=== PATIENT | female | born 2000 | race Caucasian/White ===

== ENCOUNTER 2021-05-15 17:28 | Emergency (ER) | payer OTHER ==
[~2021-05-15] VITALS: Ht 162.6 cm; Wt 149.7 kg
[2021-05-15] MEDS ORDERED: VITAMIN D250 MCG PO (17:37)
[2021-05-15] MEDS ORDERED: CELEXA10 MG PO (17:37)
[2021-05-15] MEDS ORDERED: BUPROPION HCL150 MG PO (17:37)
[2021-05-15] MEDS ORDERED: PREDNISONE 20 M20 MG PO (20:11)
[2021-05-15] MEDS ORDERED: PROAIR HFA8.5 GM INH (20:11)
[2021-05-15 20:18] VITALS: BP 141/70
== END 2021-05-15 20:19 | disposition home or self-care (01) ==
LOC: M.ERS 17:28
DX: J98.01 Acute bronchospasm (principal); Z20.822 Contact with and (suspected) exposure to COVID-19